=== PATIENT | female | born 1990 | race Caucasian/White ===

== ENCOUNTER 2018-10-13 12:53 | Inpatient (IN) ==
[2018-10-13] MEDS ORDERED: VANCOMYCIN 1 GM/NS 1 GM/250 ML IVPB IV ONE (13:18)
[2018-10-13] MEDS ORDERED: ZOSYN 4.5 GM in NS 100 ML IV ONE (13:18)
[2018-10-13] MEDS ORDERED: NICODERM PATCH TD ONE (13:20)
--- NOTE | 2018-10-13 13:45 | Diag Imaging Result Doc PS360 ---
EXAM: CHEST-PORTABLE 10/13/2018 HISTORY: SEPSIS TECHNIQUE: AP portable at 1329 COMMENT: There is no evidence of acute cardiac or pulmonary disease. Compared to 09/24/2015 there has been no significant change in the appearance of the chest. IMPRESSION: No acute disease. Electronically signed by Stas Daniel 10/13/2018 1:43 PM
[2018-10-13 14:12] LABS: BASO# 0.01 X1000 (0.0-0.2); HEMATOCRIT 37.7 % (37.0-47.0); HEMOGLOBIN 12.8 g/dL (12.0-16.0); LYMPH# 1.12 X1000 (1.2-3.4); MCH 31.1 PG (27-31); MCV 91.5 FL (81-99); MONO# 1.11 X1000 (0.11-0.59); NEUT# 34.77 X1000 (1.4-6.5); PLT 314 X1000 (130-400); RBC 4.12 XMIL (4.2-5.4); RDW 12.6 % (11.5-14.5); WBC 37.01 X1000 (4.8-10.8)
[2018-10-13 14:19] LABS: AGAP 16; BUN 7 mg/dL (8-22); CALCIUM 8.8 mg/dL (8.8-10.2); CHLORIDE 99 mmol/L (98-107); COSMO 269; CREATININE 0.6 mg/dL (0.5-0.9); ESTIMATED GFR > 60; GLUCOSE 142 mg/dL (70-104); POTASSIUM 3.6 mmol/L (3.5-5.1); SODIUM 134 mmol/L (136-145); TCO2 19 mmol/L (25-35)
[2018-10-13 14:28] LABS: BANDS 5 % (0-1); LYMPHS 3 % (21-51); MONO 2 % (1-9); SEGS 90 % (42-75)
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
[2018-10-13] MEDS ORDERED: NS 1,000 ML IV ONE ×2 (14:42→15:08)
--- NOTE | 2018-10-13 14:45 | EKG Report ---
Test Performed on : 10/13/2018 2:04:11 PM Test Reason : SEPSISD Blood Pressure : / mmHG Vent. Rate : 105 BPM Atrial Rate : 105 BPM P-R Int : 126 ms QRS Dur : 080 ms QT Int : 334 ms P-R-T Axes : 107 120 115 degrees QTc Int : 441 ms Suspect arm lead reversal, interpretation assumes no reversal Sinus tachycardia. Right axis deviation Abnormal ECG No previous ECGs available Unconfirmed Result
[2018-10-13] MEDS ORDERED: VANCOMYCIN IV PER PHARMACY MISC SCH (15:00)
[2018-10-13] MEDS ORDERED: ZOFRAN IV PRN (15:06)
[2018-10-13] MEDS ORDERED: TYLENOL PO PRN (15:06)
[2018-10-13 15:09] LABS: INR 1.07; PROTIME 14.8 Seconds (11.0-16.0)
[2018-10-13 15:10] LABS: PTT 32.1 Seconds (22.3-41.8)
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
[2018-10-13 16:14] LABS: CK INDEX 2.3 (0.0-2.5); CK-MB 9.37 ng/mL (0.0-5.0)
[2018-10-13 16:14] LABS: URINE SOURCE CLEAN CATCH
[2018-10-13 16:17] LABS: BILIRUBIN URINE NEGATIVE (NEGATIVE); BLOOD URINE TRACE (NEGATIVE); COLOR ORANGE; GLUCOSE URINE 150 mg/dL (NEGATIVE); KETONE URINE TRACE mg/dL (NEGATIVE); LEUKOCYTES URINE MODERATE (NEGATIVE); NITRITE URINE POSITIVE (NEGATIVE); PROTEIN URINE 50 mg/dL (NEGATIVE); SP GRAVITY URINE 1.007; TURBIDITY URINE HAZY (CLEAR); UR EPITHELIAL CELLS >10 /HPF (<10); URINE BACTERIA 4+ /HPF; URINE RBC <10 /HPF (<10); URINE WBC 20-40 /HPF (<10); UROBILINOGEN URINE NORMAL (NORMAL)
[2018-10-13] MEDS: NS 1,000 ML IV SCH (16:35)
--- NOTE | 2018-10-13 16:57 | Diag Imaging Result Doc PS360 ---
CT EXT UPPER LEFT W/CON - 10/13/2018 INDICATION: left hand cellulitis; r/o abscess TECHNIQUE: CT of the left hand with intravenous contrast COMPARISON: None FINDINGS: There is diffuse subcutaneous soft tissue swelling over the dorsum of the left hand. No drainable fluid collections. No soft tissue gas or foreign body. No bony erosions. No fracture or dislocation. IMPRESSION: Severe cellulitis of the dorsum of the left hand. This exam was performed using automated exposure control, adjustment of mA or kV according to patient size, and/or use of iterative reconstruction technique Electronically signed by Hieu Quezada 10/13/2018 4:55 PM
[2018-10-13] MEDS: NORCO-7.5 PO PRN ×2 (17:24→22:38)
[2018-10-13] MEDS: VANCOMYCIN 1.3 GM in NS 250 ML IV SCH (22:41)
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
[2018-10-14] MEDS: ZOSYN 4.5 GM in NS 100 ML IV SCH ×3 (01:11→17:06)
[2018-10-14] MEDS: NS 1,000 ML IV SCH ×4 (01:40→19:01)
[2018-10-14] MEDS: NORCO-7.5 PO PRN ×2 (01:41→06:02)
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
[2018-10-14 06:32] LABS: INR 1.31; PROTIME 17.3 Seconds (11.0-16.0)
[2018-10-14 06:33] LABS: PTT 34.6 Seconds (22.3-41.8)
[2018-10-14 06:40] LABS: BASO# 0.01 X1000 (0.0-0.2); EOS# 0.25 X1000 (0.0-0.7); EOS% 0.9 % (0.0-10.0); HEMATOCRIT 35.6 % (37.0-47.0); HEMOGLOBIN 11.8 g/dL (12.0-16.0); IMM GRAN# 0.11 X1000 (0.0-0.04); IMM GRAN% 0.4 % (0.0-0.5); LYMPH# 1.04 X1000 (1.2-3.4); LYMPH% 3.9 % (20.5-51.1); MCH 30.6 PG (27-31); MCHC 33.1 g/dL (33-37); MCV 92.5 FL (81-99); MONO% 2.2 % (1.7-9.3); MPV 9.8 FL (7.4-10.4); NEUT% 92.6 % (42.2-75.2); PLT 267 X1000 (130-400); RBC 3.85 XMIL (4.2-5.4); RDW 12.5 % (11.5-14.5); WBC 27.01 X1000 (4.8-10.8)
[2018-10-14 06:46] LABS: AGAP 10; ALB/GLOB RATIO 1.2; ALKALINE PHOSPHATASE 99 U/L (32-104); BUN 7 mg/dL (8-22); CALCIUM 7.9 mg/dL (8.8-10.2); CHLORIDE 104 mmol/L (98-107); COSMO 268; CREATININE 0.6 mg/dL (0.5-0.9); ESTIMATED GFR > 60; GLUCOSE 91 mg/dL (70-104); GOT 52 U/L (10-30); GPT 43 U/L (10-36); MAGNESIUM 1.5 mg/dL (1.5-2.7); POTASSIUM 3.3 mmol/L (3.5-5.1); SODIUM 135 mmol/L (136-145); TCO2 21 mmol/L (25-35); TOTAL BILIRUBIN 0.78 mg/dL (0.20-1.00); TOTAL PROTEIN 5.5 g/dL (6.3-8.3)
[2018-10-14 07:31] LABS: LYMPHS 4 % (21-51); MONO 2 % (1-9); SEGS 94 % (42-75)
--- NOTE | 2018-10-14 07:48 | EKG Report ---
Test Performed on : 10/14/2018 07:36:00 AM Test Reason : tachycardia; sepsis Blood Pressure : / mmHG Vent. Rate : 093 BPM Atrial Rate : 093 BPM P-R Int : 114 ms QRS Dur : 094 ms QT Int : 346 ms P-R-T Axes : 081 076 074 degrees QTc Int : 430 ms Normal sinus rhythm. Normal ECG When compared with ECG of 13-OCT-2018 14:04, (Unconfirmed) I suspect her previous EKG has right arm and leg leads reversed T wave inversion no longer evident in Lateral leads Confirmed by Matthew KELLY, Sabino Amezcua ([id number]) on 10/14/2018 4:57:35 PM
[2018-10-14] MEDS: MIRALAX PO SCH ×2 (10:21→20:28)
[2018-10-14] MEDS: LOVENOX SUBQ SCH (10:21)
[2018-10-14] MEDS: NICODERM PATCH TD PRN (10:21)
[2018-10-14] MEDS: NORCO-10 PO PRN ×3 (10:22→20:28)
[2018-10-14] MEDS: VANCOMYCIN 1.3 GM in NS 250 ML IV SCH ×2 (11:18→20:28)
[2018-10-14] MEDS ORDERED: KLOR-CON PO ONE (16:20)
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
[2018-10-15] MEDS: ZOSYN 4.5 GM in NS 100 ML IV SCH ×3 (00:07→12:21)
[2018-10-15] MEDS: NS 1,000 ML IV SCH ×3 (04:13→18:12)
[2018-10-15] MEDS: NORCO-10 PO PRN ×2 (04:13→08:44)
[2018-10-15 07:51] LABS: BASO# 0.01 X1000 (0.0-0.2); EOS% 0.4 % (0.0-10.0); HEMATOCRIT 32.1 % (37.0-47.0); HEMOGLOBIN 10.8 g/dL (12.0-16.0); IMM GRAN# 0.09 X1000 (0.0-0.04); IMM GRAN% 0.4 % (0.0-0.5); LYMPH# 1.21 X1000 (1.2-3.4); LYMPH% 4.9 % (20.5-51.1); MCH 30.9 PG (27-31); MCHC 33.6 g/dL (33-37); MCV 91.7 FL (81-99); MONO# 0.71 X1000 (0.11-0.59); MONO% 2.9 % (1.7-9.3); MPV 10.2 FL (7.4-10.4); NEUT# 22.37 X1000 (1.4-6.5); NEUT% 91.4 % (42.2-75.2); PLT 267 X1000 (130-400); RDW 12.3 % (11.5-14.5); WBC 24.49 X1000 (4.8-10.8)
[2018-10-15 08:09] LABS: AGAP 11; BUN 3 mg/dL (8-22); CHLORIDE 105 mmol/L (98-107); COSMO 270; CREATININE 0.4 mg/dL (0.5-0.9); ESTIMATED GFR > 60; GLUCOSE 96 mg/dL (70-104); POTASSIUM 3.4 mmol/L (3.5-5.1); SODIUM 137 mmol/L (136-145); TCO2 21 mmol/L (25-35)
--- NOTE | 2018-10-15 09:06 | INFECTIOUS DISEASE PROGRESS NO ---
DATE: 10/15/2018 PRESENT ILLNESS: The patient has severe cellulitis of her left hand. It involves not only the hand, but it has spread up her arm to the elbow. The patient does have a pustule on her hand, which with a needle I opened and pus did come out. MEDICATIONS: Patient is on vancomycin and Zosyn. PHYSICAL EXAMINATION: Vital Signs: Temperature is 98.3 degrees, pulse 89, respirations 16, blood pressure 104/67. General: This is a healthy-appearing, young female. She is in no acute distress. Head/eyes/ears/nose/throat: She can hear my spoken words and see near objects. No drainage is noted from the nose or ears. Neck: No stiffness. Lungs: Clear to auscultation. Cardiovascular: Heart rate is regular. Abdomen: Soft and nontender. Extremities: The patient's left hand remains erythematous and swollen. As I mentioned above, with a needle I opened the pustule that was on her hand and pus did come out. This has been sent to the micro lab for culture. Also there is swelling in the arm along with erythema up to the elbow,and I think neither the hand nor the arm is any better. Neurologic: Patient is awake. She can move her extremities. There is no tremor. LAB AND X-RAY: There is no new radiographic study today. The CBC shows the white count is 24,490, hemoglobin 10.8, and platelet count 267,000. There is no creatinine for today. Blood and urine cultures are growing gram-negative rods. ASSESSMENT AND PLAN: The patient's left hand infection I think is severe and I do not see it making any progress. I did prick the pustule that was on hand and pus did come out, and I have sent that for culture. As far as surgery goes, I think that with the hand and arm not getting any better, in fact may be looking worse, that surgery would be the proper thing to do on that hand. Also I will order a bladder scan and renal ultrasound because of her gram negative divya UTI and bacteremia. COMORBIDITIES: The patient's comorbidities reveal she does smoke cigarettes and marijuana. cc: David Lee MD MTDD
[2018-10-15] MEDS: LOVENOX SUBQ SCH (09:10)
[2018-10-15] MEDS: MIRALAX PO SCH ×2 (09:11→20:34)
[2018-10-15] MEDS ORDERED: MORPHINE IV PRN ×2 (09:15→19:47)
[2018-10-15] MEDS: VANCOMYCIN 1.3 GM in NS 250 ML IV SCH (09:17)
--- NOTE | 2018-10-15 11:49 | Diag Imaging Result Doc PS360 ---
EXAM: US RENAL 2 (RETROPER) COMPLETE HISTORY: UTI TECHNIQUE: Renal ultrasound COMPARISON: None. FINDINGS: The right kidney measures 12.2 x 5.0 x 5.2 cm. Normal renal echotexture and cortical thickness. No renal stone or hydronephrosis. No renal mass. The left kidney measures 12.3 x 5.1 x 5.8 cm. Normal renal echotexture and cortical thickness. No renal stones or hydronephrosis. No renal mass. The urinary bladder is not distended on the prevoid exam. Patient apparently voided prior to coming to the procedure. IMPRESSION: Normal renal ultrasound. Electronically signed by Avi Santamaria 10/15/2018 11:46 AM
--- NOTE | 2018-10-15 12:14 | PROGRESS NOTE ---
DATE: 10/15/2018 SUBJECTIVE: This patient is still complaining of left arm and upper extremity pain, is still swollen and I do believe he is getting a little bit worse. Orthopedic Surgery Department evaluated this patient. Hopefully, she will go to the OR today. Dr. Lee from infectious disease department drained a little bit of pus from her dorsal area of her hand. Probably this patient has tenosynovitis especially of the ring finger. Continue with antibiotics and treatment. OBJECTIVE: Vital Signs: Temperature 98.3 degrees, pulse 89, respiratory rate 16, blood pressure 104/67, and oxygen saturation 99 percent on room air. HEENT: Head normocephalic. No trauma. PERRLA. Neck: Supple. No JVD. No masses. Central trachea. Chest: Clear to auscultation. No wheezing. No rales. Abdomen: Soft, nontender, nondistended. No hepatosplenomegaly. Extremity: Her left hand is swollen erythematosus tender to palpation mostly on the dorsal part of the especially, her ring finger. The swelling and redness extending up to the elbow now. Neurological: Alert and oriented x3. No focal deficits. LABORATORY: WBC 24, hemoglobin 10.8, hematocrit 32.1 and platelets 267,000. Sodium 137, potassium 3.4, chloride 105, bicarbonate 21, BUN 3, creatinine 0.4 glucose 96, and calcium 8. ASSESSMENT AND PLAN: 1. Sepsis secondary to left hand cellulitis. Continue with antibiotics. Infectious Disease Department on board. Orthopedic surgery will go to the OR today, probably he has some fluid collection/pus inside the hand, we need to rule out tenosynovitis. 2. Left hand cellulitis as above. 3. Urinary frequency and positive culture that showed gram-negative rods. Continue with antibiotics. 4. Bacteremia with gram-negative rods. Continue with the same treatment. Infectious Disease Department on board. She is not complaining of fever or chills at this moment. 5. Anxiety and depression. Continue home medication. 6. Deep vein thrombosis prophylaxis. Continue with the same treatment. She has been getting Lovenox. cc: Tino Pastrana MD
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
[2018-10-15] MEDS ORDERED: NEOSPORIN G.U. IRRIGANT ONE (17:19)
[2018-10-15] MEDS ORDERED: DIPRIVAN 1% ONE (17:24)
[2018-10-15] MEDS ORDERED: VERSED ONE (17:24)
[2018-10-15] MEDS ORDERED: FENTANYL ONE (17:24)
[2018-10-15] MEDS ORDERED: DECADRON ONE (18:10)
[2018-10-15] MEDS ORDERED: ZOFRAN ONE (18:10)
[2018-10-15] MEDS ORDERED: NORCO-7.5 ONE (18:51)
[2018-10-15] MEDS ORDERED: ZOFRAN IV PRN (19:44)
[2018-10-15] MEDS: NICODERM PATCH TD PRN (20:32)
[2018-10-15] MEDS: MAXIPIME 1 GM in NS 50 ML IV SCH (20:32)
[2018-10-15] MEDS: NORCO-7.5 PO PRN (23:13)
[2018-10-16] MEDS: VANCOMYCIN 1.3 GM in NS 250 ML IV SCH (01:50)
[2018-10-16] MEDS: VANCOMYCIN 2,000 MG in NS 500 ML IV SCH ×2 (02:14→15:25)
[2018-10-16] MEDS: NORCO-7.5 PO PRN ×5 (05:09→23:09)
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
[2018-10-16 07:11] LABS: BASO# 0.02 X1000 (0.0-0.2); BASO% 0.1 % (0.0-0.8); HEMATOCRIT 31.2 % (37.0-47.0); HEMOGLOBIN 10.3 g/dL (12.0-16.0); IMM GRAN# 0.13 X1000 (0.0-0.04); IMM GRAN% 0.5 % (0.0-0.5); LYMPH# 0.83 X1000 (1.2-3.4); MCH 30.2 PG (27-31); MCV 91.5 FL (81-99); MONO# 0.85 X1000 (0.11-0.59); MONO% 3.1 % (1.7-9.3); MPV 9.9 FL (7.4-10.4); NEUT# 25.68 X1000 (1.4-6.5); NEUT% 93.3 % (42.2-75.2); PLT 291 X1000 (130-400); RBC 3.41 XMIL (4.2-5.4); RDW 12.2 % (11.5-14.5); WBC 27.51 X1000 (4.8-10.8)
[2018-10-16 07:36] LABS: AGAP 11; ALB/GLOB RATIO 1.2; ALBUMIN 3.6 g/dL (3.5-5.0); ALKALINE PHOSPHATASE 226 U/L (32-104); BUN 4 mg/dL (8-22); CALCIUM 8.8 mg/dL (8.8-10.2); CHLORIDE 107 mmol/L (98-107); COSMO 280; CREATININE 0.4 mg/dL (0.5-0.9); ESTIMATED GFR > 60; GLUCOSE 127 mg/dL (70-104); GOT 35 U/L (10-30); GPT 50 U/L (10-36); POTASSIUM 3.3 mmol/L (3.5-5.1); SODIUM 141 mmol/L (136-145); TCO2 23 mmol/L (25-35); TOTAL BILIRUBIN 0.31 mg/dL (0.20-1.00); TOTAL PROTEIN 6.5 g/dL (6.3-8.3)
[2018-10-16 07:47] LABS: BANDS 4 % (0-1); LYMPHS 4 % (21-51); MONO 6 % (1-9); SEGS 86 % (42-75)
[2018-10-16] MEDS: MIRALAX PO SCH ×2 (09:16→20:42)
[2018-10-16] MEDS: NS 1,000 ML IV SCH ×3 (09:16→16:03)
[2018-10-16] MEDS: MAXIPIME 1 GM in NS 50 ML IV SCH ×2 (09:16→20:38)
[2018-10-16] MEDS: LOVENOX SUBQ SCH ×2 (09:17→09:25)
[2018-10-16] MEDS ORDERED: KLOR-CON PO ONE (10:22)
--- NOTE | 2018-10-16 10:34 | PROGRESS NOTE ---
DATE: 10/16/2018 SUBJECTIVE: The patient is a pleasant 28-year-old female, who is 1 day status post I and D for the left hand. She is currently resting comfortably. OBJECTIVE: On physical exam, patient's dressing is intact. Her swelling is much improved in her hand. Still has some edema in left upper extremity. She also has some cellulitic streaking in the dorsal and posterior aspect of the arm extending just proximal to the elbow. There is no evidence of fluctuance and compartments are soft. She has good capillary refill distally. Her intraoperative Gram stain revealed gram-positive cocci. Cultures are pending. Her WBC is 27.51, hemoglobin 10.3, hematocrit is 31.2, platelets 291. IMPRESSION: Postoperative day #1 status post incision and drainage of left hand. PLAN: At this point, I will change the dressing and remove some packing tomorrow. Patient is encouraged to continue with elevation of left upper extremity. She will continue with her antibiotics. cc: Igor Jaramillo MD
--- NOTE | 2018-10-16 14:30 | PROGRESS NOTE ---
DATE: 10/16/2018 SUBJECTIVE: This patient is still complaining of left arm pain but compared with yesterday I believe is better, she still has redness up to the elbow but she is able today to move her fingers better, she is still complaining of pain at the level of the ring finger with movement. She is status post I and D, orthopedic surgery and Infectious Disease Department on board, urine culture showed Escherichia coli that is pansensitive. OBJECTIVE: Vital Signs: Temperature 97.4 degrees, pulse 93, respiratory rate 16, blood pressure 138/97, oxygen saturation 100% on room air. HEENT: Head normocephalic. No trauma. PERRLA. Neck: Supple. No JVD. No masses. Central trachea. Chest: Clear to auscultation. No wheezing. No rales. Abdomen: Soft, nontender, nondistended. No hepatosplenomegaly. Extremity: Her left hand is swollen, erythematous and tender to palpation mostly on the dorsal part of the hand specially right ring finger but compared with yesterday it looks less swollen and she is able to move the fingers a little bit better, the swelling and redness is extending up to the elbow. Neurologic: Alert and oriented x3. No focal deficits. LABORATORY: WBC 27.5, hemoglobin 10.3, hematocrit 31.2, platelets 291,000, sodium 141, potassium 3.3, chloride 107, bicarbonate 23, BUN 4, creatinine 0.4, glucose 127, calcium 8.8, AST 35, ALT 50, alkaline phosphatase 226, albumin 3.6. ASSESSMENT AND PLAN: 1. Sepsis secondary to left hand cellulitis. Continue with antibiotics. Infectious Disease Department on board. She is status post incision and drainage, some pus was drained from the hand, she is able to move her hand a little bit better. We will continue with the same management. 2. Left hand cellulitis as above. 3. Urinary frequency and positive culture that showed Escherichia coli pansensitive, continue with antibiotics. 4. Bacteremia due to gram-negative rods. Continue with same management for now. Infectious Disease Department on board. She is not complaining of fever or chills at this moment. 5. Anxiety and depression. Continue home medication. 6. Deep vein thrombosis prophylaxis with Lovenox. 7. Leukocytosis, white blood cell still elevated increased from 24 to 27 but she is feeling better. Will continue with the same management. cc: Tino Pastrana MD
[2018-10-16] MEDS: NICODERM PATCH TD PRN (20:38)
[2018-10-17] MEDS: NORCO-7.5 PO PRN ×5 (03:31→21:17)
[2018-10-17 06:46] LABS: BASO# 0.04 X1000 (0.0-0.2); BASO% 0.3 % (0.0-0.8); EOS# 0.13 X1000 (0.0-0.7); EOS% 0.9 % (0.0-10.0); HEMATOCRIT 29.5 % (37.0-47.0); HEMOGLOBIN 9.8 g/dL (12.0-16.0); IMM GRAN# 0.15 X1000 (0.0-0.04); LYMPH# 2.43 X1000 (1.2-3.4); LYMPH% 16.4 % (20.5-51.1); MCH 30.2 PG (27-31); MCHC 33.2 g/dL (33-37); MONO# 0.88 X1000 (0.11-0.59); MONO% 5.9 % (1.7-9.3); MPV 10.2 FL (7.4-10.4); NEUT# 11.19 X1000 (1.4-6.5); NEUT% 75.5 % (42.2-75.2); PLT 310 X1000 (130-400); RBC 3.24 XMIL (4.2-5.4); RDW 12.3 % (11.5-14.5); WBC 14.82 X1000 (4.8-10.8)
[2018-10-17 07:14] LABS: AGAP 14; ALB/GLOB RATIO 0.9; ALBUMIN 3.1 g/dL (3.5-5.0); ALKALINE PHOSPHATASE 223 U/L (32-104); BUN 5 mg/dL (8-22); CALCIUM 8.3 mg/dL (8.8-10.2); CHLORIDE 107 mmol/L (98-107); COSMO 278; CREATININE 0.4 mg/dL (0.5-0.9); ESTIMATED GFR > 60; GLUCOSE 92 mg/dL (70-104); GOT 19 U/L (10-30); GPT 36 U/L (10-36); MAGNESIUM 1.7 mg/dL (1.5-2.7); SODIUM 141 mmol/L (136-145); TCO2 20 mmol/L (25-35); TOTAL BILIRUBIN 0.25 mg/dL (0.20-1.00); TOTAL PROTEIN 6.4 g/dL (6.3-8.3)
[2018-10-17] MEDS: VANCOMYCIN 2,000 MG in NS 500 ML IV SCH (07:47)
[2018-10-17] MEDS: MAXIPIME 1 GM in NS 50 ML IV SCH (07:59)
[2018-10-17] MEDS: LOVENOX SUBQ SCH (08:01)
[2018-10-17] MEDS: MIRALAX PO SCH ×2 (08:01→20:38)
[2018-10-17] MEDS: NS 1,000 ML IV SCH ×2 (09:17→20:38)
--- NOTE | 2018-10-17 10:36 | PROGRESS NOTE ---
DATE: 10/17/2018 SUBJECTIVE: The patient is a pleasant, 28-year-old female who is 2 days status post I D for an infection left hand. She has seen some improvement overall with the discomfort. PHYSICAL EXAMINATION: Patient's left upper extremity, her dressing was removed. Swelling is improved in her hand. Swelling is much improved in the fingers. Has good range of motion of the fingers. She is neurovascularly intact distally. She continues with some residual drainage from the wound. A portion of the iodoform packing was removed. It was then redressed. Continues with some cellulitic streaking proximally. LABORATORY: Her culture from intraoperative cultures has been changed to gram-positive cocci pending identification. IMPRESSION: Postoperative day #2 status post incision and drainage left hand. PLAN: At this point, patient will continue IV antibiotics per Dr. Lee. We will continue to monitor progress. cc: Igor Jaramillo MD
--- NOTE | 2018-10-17 10:59 | PROGRESS NOTE ---
DATE: 10/17/2018 SUBJECTIVE: This patient seems to be feeling better. The erythema on her left arm is improving. The arm is still swollen but compared with yesterday, I believe it is better. She is able to move more of her fingers. She is still having pain on her left ring finger. We have a positive culture of the left hand that showed gram-positive cocci and she has been placed on vancomycin already. OBJECTIVE: Vital Signs: Temperature 97.8 degrees, pulse 93, respiratory rate 16, blood pressure 125/76, oxygen saturation 97% on room air. HEENT: Head normocephalic. No trauma. PERRLA. Neck: Supple. No JVD. No masses. Central trachea. Chest: Clear to auscultation. No wheezing. No rales. Abdomen: Soft, nontender, nondistended. No hepatosplenomegaly. Extremities: Her left hand is swollen, erythematosus, and tender to palpation, mostly on the dorsal part of the hand, especially her ring finger but compared with yesterday, it looks much better. The swelling is improving and the erythema is better as well. Neurological Examination: The patient is alert and oriented x3. No focal deficits. Laboratory: WBC 14.8, hemoglobin 9.8, hematocrit 29.5, platelets 210,000. Sodium 141, potassium 3, chloride 107, bicarbonate 20, BUN 5, creatinine 0.4, glucose 92, calcium 8.3. AST 19, ALT 36, alkaline phosphatase 223, albumin 3.1. ASSESSMENT AND PLAN: 1. Sepsis secondary to left hand cellulitis. Continue with antibiotics. Infectious disease department on board. She is status post incision and drainage. Some pus was drained from the hand. Today, she is able to move her hand better compared with yesterday and the redness is getting better also. 2. Left hand cellulitis, as above. 3. Urinary tract infection with a positive culture that showed Escherichia coli, pansensitive. Continue with antibiotics. 4. Bacteremia with a positive culture that showed Haemophilus parainfluenza. For now, we will continue with the same management. Infectious disease department on board. We will wait for more recommendations. 5. Anxiety and depression. Continue with home medication. 6. Deep vein thrombosis prophylaxis with Lovenox. 7. Leukocytosis. This is getting much better. WBC decreased from 27 to 14.8. 8. Normocytic anemia. Aware. 9. Drug abuse, especially marijuana and eventually intravenous methamphetamine. This patient has been highly advised against drug use, especially intravenous drug use. I will continue with daily cessation education. cc: Tino Pastrana MD
[2018-10-17] MEDS: KLOR-CON PO SCH ×2 (11:46→21:16)
[2018-10-17 12:20] LABS: UR AMPHETAMINES QUAL PRESUMPTIVE POSITIVE (NONE DETECT); UR BARBITUATES QUAL NONE DETECTED (NONE DETECT); UR BENZODIAZEPIN QUAL NONE DETECTED (NONE DETECT); UR CANNABINOIDS QUAL PRESUMPTIVE POSITIVE (NONE DETECT); UR COCAINE QUAL NONE DETECTED (NONE DETECT); UR METHADONE QUAL NONE DETECTED (NONE DETECT); UR OPIATES QUAL PRESUMPTIVE POSITIVE (NONE DETECT); UR OXYCODONE QUAL NONE DETECTED (NONE DETECT); UR PCP QUAL NONE DETECTED (NONE DETECT)
[2018-10-17] MEDS: ROCEPHIN 1 GM in NS 50 ML IV SCH (16:43)
[2018-10-17] MEDS ORDERED: ROCEPHIN 1 GM in NS 50 ML IV SCH (20:00)
[2018-10-17] MEDS: NICODERM PATCH TD PRN (23:41)
[2018-10-18] MEDS: ROCEPHIN 1 GM in NS 50 ML IV SCH (06:31)
[2018-10-18] MEDS: NORCO-7.5 PO PRN ×2 (07:08→12:06)
[2018-10-18 07:27] LABS: BASO# 0.03 X1000 (0.0-0.2); BASO% 0.4 % (0.0-0.8); EOS# 0.24 X1000 (0.0-0.7); EOS% 3.1 % (0.0-10.0); HEMATOCRIT 31.2 % (37.0-47.0); HEMOGLOBIN 10.3 g/dL (12.0-16.0); IMM GRAN# 0.25 X1000 (0.0-0.04); IMM GRAN% 3.2 % (0.0-0.5); LYMPH# 1.87 X1000 (1.2-3.4); LYMPH% 23.9 % (20.5-51.1); MCH 30.2 PG (27-31); MCV 91.5 FL (81-99); MONO# 0.63 X1000 (0.11-0.59); MONO% 8.1 % (1.7-9.3); MPV 9.6 FL (7.4-10.4); NEUT% 61.3 % (42.2-75.2); PLT 354 X1000 (130-400); RBC 3.41 XMIL (4.2-5.4); RDW 12.5 % (11.5-14.5); WBC 7.82 X1000 (4.8-10.8)
--- NOTE | 2018-10-18 07:49 | PROGRESS NOTE ---
DATE: 10/18/2018 SUBJECTIVE: The patient is a pleasant 28-year-old female who is 3 days status post I and D for an infection of left hand. She has no significant complaints this morning. PHYSICAL EXAMINATION: On physical exam, the patient is afebrile. The left hand dressing was changed, and the packing was removed. She continues with drainage from the wound. Her erythema of her left arm has improved as well. She is able to flex and extend all of her fingers. She is grossly neurovascularly intact. DIAGNOSTIC DATA: Her WBCs normalized to 7.82, hemoglobin 10.3, hematocrit is 31.2, platelets 354,000. Her culture in her hand is growing group A strep. IMPRESSION: Postoperative day 3, status post I and D of left hand. PLAN: At this point, the patient will continue her antibiotics per Dr. Lee. We will recheck wound in 1 week. cc: Igor Jaramillo MD
[2018-10-18 07:56] LABS: AGAP 12; ALB/GLOB RATIO 1.2; ALKALINE PHOSPHATASE 166 U/L (32-104); BUN 4 mg/dL (8-22); CALCIUM 8.3 mg/dL (8.8-10.2); CHLORIDE 105 mmol/L (98-107); COSMO 280; CREATININE 0.5 mg/dL (0.5-0.9); ESTIMATED GFR > 60; GLUCOSE 95 mg/dL (70-104); GOT 14 U/L (10-30); GPT 26 U/L (10-36); POTASSIUM 3.3 mmol/L (3.5-5.1); SODIUM 142 mmol/L (136-145); TCO2 25 mmol/L (25-35); TOTAL BILIRUBIN < 0.15 mg/dL (0.20-1.00); TOTAL PROTEIN 5.6 g/dL (6.3-8.3)
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
[2018-10-18] MEDS: MIRALAX PO SCH (09:43)
[2018-10-18] MEDS: LOVENOX SUBQ SCH (09:43)
[2018-10-18] MEDS: NS 1,000 ML IV SCH (09:58)
[2018-10-18 11:50] VITALS: BP 121/63
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
== END 2018-10-18 15:00 | disposition home or self-care (01) | DRG 854 ==
LOC: ED 12:53 → 3N 16:31 → SUATTDRO 16:31
PROVIDERS: ATTEND Internal Medicine
CPT/HCPCS: 71010; 71045; 73130; 73201; 76770; 80048; 80053; 80101; 80202; 80301; 80307; 80324; 80345; 80346; 80353; 80358; 80361; 80365; 81001; 81025; 82550; 82553; 82565; 83605; 83735; 83992; 84484; 84703; 85025; 85610; 85730; 87040; 87070; 87075; 87077; 87088; 87184; 87186; 87205; 93005; 93010; 96365; 96375; 99285; A9270; G0431; G0434; G0479; G0480; J0692; J0696; J1100; J1650; J2250; J2270; J2405; J2543; J3010; J3370; J7030; J7040; J7050; Q9967